=== PATIENT | male | born 1980 | race Hispanic/Latino ===

== ENCOUNTER 2020-12-09 02:52 | Inpatient (IN) | payer SELFPAY ==
[~2020-12-09] VITALS: Ht 152.4 cm; Wt 81.0 kg
--- NOTE | 2020-12-09 02:52 | NUR ---
PT TO ROOM 10 BY EMS FOR ABDOMINAL PAIN FOR 2 DAYS.
[2020-12-09 03:17] LABS: HEMATOCRIT 42.9 % (39.0-50.0); HEMOGLOBIN 14.9 g/dl (14.0-18.0); IMMATURE GRANULOCYTES 0.7 % (0.0-5.0); MEAN CELL VOLUME 84.1 fL CALC (80.0-100.0); MEAN CORPUSCULAR HGB 29.2 pG CALC (26.0-32.0); MEAN CORPUSCULAR HGB CONC 34.7 g/dL CAL (32.0-36.0); NEUT# 14.23 thou/uL (1.82-7.42); RED BLOOD COUNT 5.1 mill/uL (4.70-6.10); RED CELL DISTRI WIDTH 12.3 % (11.5-15.5)
[2020-12-09 03:33] LABS: ALBUMIN 4.3 g/dL (3.2-5.0); ALKALINE PHOSPHATASE 82 u/l (38-126); AMYLASE 188 u/l (30-110); ANION GAP 13 (6-22 (CALC)); BILIRUBIN, TOTAL 2.7 mg/dL (0.0-1.4); BUN 15 mg/dL (9-20); BUN/CREATININE RATIO 25 (12-20 (CALC)); CARBON DIOXIDE 28 mmol/l (22-30); CHLORIDE 95 mmol/l (95-108); CREATININE 0.6 mg/dL (0.7-1.3); ETHYL ALCOHOL 0 mg/dl (0-30); GFR > 60 ML/MIN (>=60 (CALC)); GFR FOR AFR.AMER. > 60 ML/MIN (>=60 (CALC)); LIPASE 1449 u/l (23-300); POTASSIUM 4.1 mmol/l (3.5-5.1); SGOT/AST 201 u/l (17-59); SODIUM 132 mmol/l (137-146)
--- NOTE | 2020-12-09 03:40 | NUR ---
AMYLASE AND LIPASE ELEVATED. DR MORA INFORMED.
--- NOTE | 2020-12-09 04:25 | NUR ---
PT TO HAVE CT WITH ORAL AND IV CONTRAST.
--- NOTE | 2020-12-09 04:45 | NUR ---
FIRST DOSE OF GASTROGRAFIN GIVEN AND PT IS TO HAVE TOTAL OF 3 DOSES 30 MINUTES APART.
--- NOTE | 2020-12-09 05:15 | NUR ---
PT STATES PAIN DOWN TO 3/10 AFTER MORPHINE. 2ND DOSE OF CONTRAST GIVEN.
--- NOTE | 2020-12-09 05:45 | NUR ---
3RD DOSE OF CONTRAST GIVEN.
--- NOTE | 2020-12-09 06:18 | NUR ---
PT TO CT VIA STRETCHER.
--- NOTE | 2020-12-09 06:55 | NUR ---
REPORT TO JOSAFAT SIMMS
--- NOTE | 2020-12-09 07:05 | NUR ---
SBAR PRINTED TO FLOOR
--- NOTE | 2020-12-09 08:05 | NUR ---
OBS ROOM RECEIVED. REPORT CALLED TO EDWARD
--- NOTE | 2020-12-09 08:10 | NUR ---
PT TRANSPORTED TO FLOOR ON STRETCHER IN STABLE CONDITION. BEDSIDE TRANSITION GIVEN.
[2020-12-09 08:23] VITALS: BP 142/90
--- NOTE | 2020-12-09 08:30 | NUR ---
PT ARRIVED VIA STREACHER. AXOX3, ABLE TO AMB TO THE BED FROM THE STREACHER. INTO BED WITH MIN ASST. ORIENTED TO THE ROOM THE BED THE TV AND THE CALL SYSTEM. INSTRUCTED THE PATIENT ON RIGHTS. NOTED B/P REPORTED TO THE PROVIDER. C/O PAIN MED PER ORDER. REPOSITIONED FOR COMFORT, SIDE RAILS UP CALL LIGHT IN REACH BED LOCKED IN LOW POSITION. TEDS PLACED ON PT. ALL SAFTY MEASUREWS IN PLACE. WILL CONTINUE TO MONIOTR THE PATIENT.
[2020-12-09 09:43] VITALS: BP 176/104
--- NOTE | 2020-12-09 09:45 | NUR ---
IV FLUID UP. NOTED B/P 176/104 REPORTED TO THE PROVIDER, ORDERS RECEIVED AND CARRIED OUT. WILL CONTINUE TO MONIOTR THE PATIENT.
--- NOTE | 2020-12-09 11:08 | NUR ---
0900 PT INDICATES THE PAIN IS NOT BAD.
--- NOTE | 2020-12-09 11:10 | NUR ---
PT RESTING COMFORTABLE NO DISTRESS NOTED AT THIS TIME.
[2020-12-09 13:07] LABS: HEMATOCRIT 43.8 % (39.0-50.0); HEMOGLOBIN 14.6 g/dl (14.0-18.0); MEAN CELL VOLUME 86.9 fL CALC (80.0-100.0); MEAN CORPUSCULAR HGB CONC 33.3 g/dL CAL (32.0-36.0); RED BLOOD COUNT 5.04 mill/uL (4.70-6.10); RED CELL DISTRI WIDTH 12.7 % (11.5-15.5)
[2020-12-09 13:28] LABS: ALBUMIN 3.7 g/dL (3.2-5.0); ALKALINE PHOSPHATASE 64 u/l (38-126); ANION GAP 12 (6-22 (CALC)); BILIRUBIN, TOTAL 2.1 mg/dL (0.0-1.4); BUN 12 mg/dL (9-20); BUN/CREATININE RATIO 19 (12-20 (CALC)); CARBON DIOXIDE 27 mmol/l (22-30); CHLORIDE 96 mmol/l (95-108); CREATININE 0.6 mg/dL (0.7-1.3); GFR > 60 ML/MIN (>=60 (CALC)); GFR FOR AFR.AMER. > 60 ML/MIN (>=60 (CALC)); POTASSIUM 4.3 mmol/l (3.5-5.1); SGOT/AST 112 u/l (17-59); SODIUM 131 mmol/l (137-146); TOTAL PROTEIN 7.1 g/dL (6.3-8.2)
--- NOTE | 2020-12-09 15:20 | NUR ---
REPORT RECEIVED FROM [place].
[2020-12-09 15:25] VITALS: BP 148/89
--- NOTE | 2020-12-09 15:46 | NUR ---
PATIENT HEART RATE IS 125. PATIENT STATED PAIN IN ABD 5/10. MEDICATED PATIENT WITH MORPHINE. HEART RATE READING 114-125. PATIENT DENIES ANY OTHER NEEDS AT THIS TIME. CALL LIGHT IN REACH. NOTIFIED [place] LAL ORDERS RECEIVED FOR A TELE.
[2020-12-09 18:55] LABS: URINE BILIRUBIN - DIPSTICK SMALL (NEGATIVE); URINE BLOOD DIPSTICK TRACE-LYSED (NEGATIVE); URINE COLOR AMBER; URINE GLUCOSE - DIPSTICK NEGATIVE (NEGATIVE); URINE KETONE 15 mg/dL (NEGATIVE); URINE LEUK ESTERASE NEGATIVE (NEGATIVE); URINE NITRITE - DIPSTICK POSITIVE (Negative); URINE PROTEIN - DIPSTICK 30 mg/dL (NEG-TRACE)
[2020-12-09 18:59] LABS: URINE RBC 0-2 RBC/hpf (0-5); URINE WBC 0-2 WBC/hpf (0-5)
[2020-12-09 19:45] VITALS: BP 140/95
--- NOTE | 2020-12-09 20:13 | NUR ---
PATIENT RESTING IN BED AT THIS TIME-AWAKE ALERT AND ORIENTEDX3. PATIENT C/O HEADACHE AND ABD PAIN-6/10 ON PAIN SCALE. MEDICATED WITH MORPHINE 4MG IVP ORDERED FOR PAIN. TELE MONITOR IN [id number] AT THIS TIME. IVF NS PATENT AND INFUSING VIA RAC SITE AT 125CC/HR. SITE IS H EALTHY WITH GOOD BLOOD RETURN. VOIDED 250CC OF AYESHA URINE IN URINAL. ABD IS SOFT WITH ACTIVE BS-LAST BM WAS YESTERDAY PER PATIENT. SAFETY PRECAUTIONS REINFORCED. CALL LIGHT IN REACH. WILL CONT TO MONITOR.
[2020-12-09 20:35] VITALS: BP 147/95
--- NOTE | 2020-12-09 21:02 | NUR ---
PATIENT RESTING IN BED-RECIEVED CALL FROM ER THAT PATIENT WAS ST-140"S. VS TAKEN AND RECORDED. BP-147/95, HR-134. EKG WAS DONE. CALL TO DR. DE WITH UPDATE AND NEW ORDERS RECEIVED. WILL MEDICATE SOON PROFILED ON EMAR.
--- NOTE | 2020-12-09 22:01 | NUR ---
PATIENT RESTING IN BED-STATES A LITTLE RELIEF FROM MORPHINE GIVEN EARLIER. LR BOLUS HUNG AND INFUSING VIA RAC IV SITE. ATIVAN 1MG IVP GIVEN FOR SLIGHT ANXIETY. PROVIDED PATIENT WITH GATORADE. CALL LIGHT IN REACH. WILL CONT TO MONITOR.
[2020-12-10] VITALS: BP 139/91
--- NOTE | 2020-12-10 00:41 | NUR ---
PATIENT MEDICATED FOR ABD PAIN WITH MORPHINE 2MG IVP ORDERED FOR PAIN. RESTING IN BED. IVF PATENT AND INFUSING VIA RAC AT 125CC/HR. TELE MONITOR IN PLACE. CONT TO BE ST-120'S. CALL LIGHT IN REACH. WILL CONT TO MONITOR.
--- NOTE | 2020-12-10 02:42 | NUR ---
PATIENT MEDICATED WITH ATIVAN 1MG IVP FOR ANXIETY. IVF PATENT AND INFUSING VIA RAC SITE. TELE MONITOR IN PLACE. NPO FOR U/S ABD IN AM. WILL CONT TO MONITOR.
[2020-12-10 04:00] VITALS: BP 137/65
[2020-12-10 04:45] LABS: HEMATOCRIT 40.6 % (39.0-50.0); HEMOGLOBIN 13.3 g/dl (14.0-18.0); IMMATURE GRANULOCYTES 0.9 % (0.0-5.0); MEAN CELL VOLUME 88.1 fL CALC (80.0-100.0); MEAN CORPUSCULAR HGB 28.9 pG CALC (26.0-32.0); MEAN CORPUSCULAR HGB CONC 32.8 g/dL CAL (32.0-36.0); NEUT# 11.28 thou/uL (1.82-7.42); RED BLOOD COUNT 4.61 mill/uL (4.70-6.10); RED CELL DISTRI WIDTH 12.8 % (11.5-15.5)
[2020-12-10 04:54] LABS: ALBUMIN 3.3 g/dL (3.2-5.0); ALKALINE PHOSPHATASE 51 u/l (38-126); AMYLASE 304 u/l (30-110); ANION GAP 10 (6-22 (CALC)); BILIRUBIN, TOTAL 2.3 mg/dL (0.0-1.4); BUN 8 mg/dL (9-20); BUN/CREATININE RATIO 14 (12-20 (CALC)); CARBON DIOXIDE 26 mmol/l (22-30); CHLORIDE 99 mmol/l (95-108); CREATININE 0.5 mg/dL (0.7-1.3); GFR > 60 ML/MIN (>=60 (CALC)); GFR FOR AFR.AMER. > 60 ML/MIN (>=60 (CALC)); POTASSIUM 4.1 mmol/l (3.5-5.1); SGOT/AST 64 u/l (17-59); SODIUM 131 mmol/l (137-146); TOTAL PROTEIN 6.6 g/dL (6.3-8.2)
[2020-12-10 05:06] LABS: LIPASE 2197 u/l (23-300)
--- NOTE | 2020-12-10 05:16 | NUR ---
PATIENT RESTING IN BED AT THIS TIME-MEDICATED FOR PAIN WITH MORPHINE 4MG IVP ORDERED FOR PAIN. TELE MONITOR IN PLACE-STILL ST-125. MEDICATED WITH NORVASC ORDERED DAILY. IVF NS PATENT AND INFUSING VIA RAC SITE AT 125CC/HR. SITE REMAINS HEALTHY. NPO FOR U/S ABD TODAY. CALL LIGHT IN REACH. WILL CONT TO MONITOR.
--- NOTE | 2020-12-10 06:06 | NUR ---
PATIENT HR CONT TO BE ST-1`40 AT THIS TIME PER ER MONITORING. ASYMPTOMATIC. CALL TO DR. DE AND NEW ORDER OBTAINED FOR METOPROLOL 5MG IVP NOW AND PRN. WILL MEDICATE SON PROFILED ON EMAR.
--- NOTE | 2020-12-10 06:22 | NUR ---
PATIENT RESTING IN BED AT THIS TIME-MEDICATED WITH LOPRESSOR 5MG IVP ORDERED FOR ST-TELE MONITOR REMAINS IN PLACE. IVF PATENT AND INFUSING VIA RAC SITE ORDERED. CALL LIGHT IN REACH. WILL CONT TO MONITOR,
[2020-12-10 07:35] VITALS: BP 148/89
--- NOTE | 2020-12-10 07:48 | NUR ---
SHIFT CHANGE REPORT, PT AWAKE ALERT AND ORIENTED SITTING UP IN BED, C/O ABD PAIN @ 10/25, STATES HE WANTS TO GO HOME, TELE MONITOR IN PLACE, CALL SOTO IN REACH, ADVISED MD WILL BE HERE LATER TO DISCUSS PLAN OF CARE, WILL CONTINUE TO MONITOR.
--- NOTE | 2020-12-10 09:19 | NUR ---
BEING TRANSPORTED OFF UNIT VIA W/C TO [facility].
--- NOTE | 2020-12-10 10:00 | NUR ---
ULTRA SOUND STAFF CALLED UNIT STATING PT SAID HE ATE BREAKFAST THIS AM AND EVEN DESCRIBED WHAT HE ATE, NURSE REASSURED STAFF HE WAS NOT SERVED A MEAL THIS AM AND ADVISED TO HAVE HOTEL SUPPLIES SALESPERSON QUESTION PT FOR ACCURATE INFO, PT IS ICELANDIC SPEAKING AND MAY UNDERSTAND AL LITTLE THAI BUT NOT SUFFICIENT TO BE RESPOND ACCURATELY IN THAI.
--- NOTE | 2020-12-10 10:05 | NUR ---
RETURNED TO UNIT AT THIS TIME AND TAKING SHOWER, WILL CONTINUE TO MONITOR.
[2020-12-10 10:52] VITALS: BP 135/85
--- NOTE | 2020-12-10 12:15 | NUR ---
PT FOUND SITTING BY WINDOW WITH IVF DISCONNECTED AND TELE MONITOR OFF, IVF RECONNECTED BY NURSE AND PT ADVISED NOT TO REMOVE EQUIPMENT FROM BODY ANYMORE, ENGRAVER RUBBER CONTACTED TO TRANSLATE (SHANNON FROM ICU), WILL CONTINUE TO MONITOR.
[2020-12-10 14:30] VITALS: BP 139/97
--- NOTE | 2020-12-10 14:50 | NUR ---
PT AMBULATED TO [facility] [place] [facility] STATING HE IS READY TO GO HOME, IV FLUID DISCONNECTED AND CATHETER REMOVED BY PT AND PLACED ON BEDSIDE TABLE. SHANNON FROM ICU CALLED TO TRANSLATE FOR PT, HE WAS GIVEN INFORMATION ON LEAVING AMA PROTOCOL, STATED HE UNDERSTANDS AND STILL WANTS TO GO HOME, FORM WAS SIGNED AND PT AMBULATED OFF UNIT. BUSINESS ENTERPRISE OFFICER (GITA) AND DR. DE NOTIFIED.
--- NOTE | 2020-12-10 14:52 | NUR ---
Patient deciding to leave AMA. Multiple attempts made to ecourage patient to remain here for continued treatment. Explained to patient all risks of leaving against medical advice including .Pt verbalized understanding of all risks. Pt verablized the urge to leave due to an important "court hearing tomorrow in [place]". Pt also encouraged to return to [facility] at any time, especially if symptoms continue or become worse. Pt verbalized understanding. AMA form signed by patient, witness by this literary writer and Earle MAURICE. Pt requesting to wait outside and wait for his taxi, pt accompanied outside by this literary writer in stable condition.
--- NOTE | 2020-12-10 14:59 | NUR ---
Patient decides to leave AMA. Multiple attempts made to ecourage patient to remain here for continued treatment. Explained to patient all risks of leaving against medical advice including . Pt verbalized understanding of all risks. Pt also encouraged to return to [facility] at any time, especially if symptoms continue or become worse. Pt verbalized understanding.
== END 2020-12-10 14:56 | disposition left against medical advice (07) | DRG 440 ==
LOC: ED 02:52 → ED-I 06:53 → MS2 07:10 → ED 07:10 → MS2 11:04
PROVIDERS: Family Medicine; Nurse Practitioner Family; ADMIT Internal Medicine; ATTEND Internal Medicine
DX: K85.20 Alcohol induced acute pancreatitis without necrosis or infection (principal); K80.20 Calculus of gallbladder without cholecystitis without obstruction; K76.9 Liver disease, unspecified; I10 Essential (primary) hypertension; F10.10 Alcohol abuse, uncomplicated; R73.9 Hyperglycemia, unspecified; Z20.822 Contact with and (suspected) exposure to COVID-19; Z23 Encounter for immunization
CPT/HCPCS: J1650; J2060; Q9967

== ENCOUNTER 2021-03-09 07:12 | Emergency (ER) | payer SELFPAY ==
[~2021-03-09] VITALS: Ht 152.4 cm; Wt 82.6 kg
[2021-03-09 08:22] LABS: URINE BILIRUBIN - DIPSTICK NEGATIVE (NEGATIVE); URINE BLOOD DIPSTICK TRACE-INTACT (NEGATIVE); URINE GLUCOSE - DIPSTICK NEGATIVE (NEGATIVE); URINE KETONE 15 mg/dL (NEGATIVE); URINE LEUK ESTERASE NEGATIVE (NEGATIVE); URINE PROTEIN - DIPSTICK TRACE mg/dL (NEG-TRACE); URINE SPECIFIC GRAVITY 1.025; URINE UROBILINOGEN - DIPSTICK 0.2 E.U./dL (0.2)
[2021-03-09 08:24] LABS: HEMATOCRIT 42.3 % (39.0-50.0); HEMOGLOBIN 14.5 g/dl (14.0-18.0); IMMATURE GRANULOCYTES 0.3 % (0.0-5.0); MEAN CORPUSCULAR HGB 29.5 pG CALC (26.0-32.0); MEAN CORPUSCULAR HGB CONC 34.3 g/dL CAL (32.0-36.0); NEUT# 8.87 thou/uL (1.82-7.42); RED BLOOD COUNT 4.92 mill/uL (4.70-6.10); RED CELL DISTRI WIDTH 12.3 % (11.5-15.5); URINE NITRITE - DIPSTICK NEGATIVE (Negative)
[2021-03-09 08:25] LABS: URINE COLOR AMBER
[2021-03-09 08:50] LABS: ALKALINE PHOSPHATASE 61 u/l (38-126); AMYLASE 53 u/l (30-110); ANION GAP 14 (6-22 (CALC)); BUN 9 mg/dL (9-20); BUN/CREATININE RATIO 13 (12-20 (CALC)); CARBON DIOXIDE 26 mmol/l (22-30); CHLORIDE 100 mmol/l (95-108); CREATININE 0.7 mg/dL (0.7-1.3); GFR > 60 ML/MIN (>=60 (CALC)); GFR FOR AFR.AMER. > 60 ML/MIN (>=60 (CALC)); LIPASE 59 u/l (23-300); POTASSIUM 4.1 mmol/l (3.5-5.1); SGOT/AST 30 u/l (17-59); SODIUM 136 mmol/l (137-146)
[2021-03-09 08:56] LABS: ALBUMIN 4.2 g/dL (3.2-5.0); BILIRUBIN, TOTAL 0.7 mg/dL (0.0-1.4)
[2021-03-09] MEDS ORDERED: LOMOTIL2.5 MG PO (10:09)
[2021-03-09] MEDS ORDERED: METRONIDAZOL500 MG PO (10:09)
[2021-03-09] MEDS ORDERED: CIPROFLOXACN500 MG PO (10:09)
[2021-03-09 10:23] VITALS: BP 162/92
== END 2021-03-09 10:25 | disposition home or self-care (01) | DRG 392 ==
LOC: ED 07:12
PROVIDERS: Emergency Medicine
DX: K52.9 Noninfective gastroenteritis and colitis, unspecified (principal); I10 Essential (primary) hypertension; Z20.822 Contact with and (suspected) exposure to COVID-19
CPT/HCPCS: Q9967

== ENCOUNTER 2021-04-09 12:51 | Emergency (ER) | payer SELFPAY ==
[~2021-04-09] VITALS: Ht 167.6 cm; Wt 81.8 kg
[~2021-04-09 12:51] MED LIST: CIPROFLOXACN500 MG PO; LOMOTIL2.5 MG PO; METRONIDAZOL500 MG PO
[2021-04-09 13:25] LABS: HEMATOCRIT 36.4 % (39.0-50.0); IMMATURE GRANULOCYTES 0.8 % (0.0-5.0); MEAN CELL VOLUME 87.3 fL CALC (80.0-100.0); MEAN CORPUSCULAR HGB 29.3 pG CALC (26.0-32.0); MEAN CORPUSCULAR HGB CONC 33.5 g/dL CAL (32.0-36.0); NEUT# 4.57 thou/uL (1.82-7.42); RED BLOOD COUNT 4.17 mill/uL (4.70-6.10)
[2021-04-09 13:31] LABS: HEMOGLOBIN 12.2 g/dl (14.0-18.0)
[2021-04-09 13:38] LABS: ALBUMIN 3.9 g/dL (3.2-5.0); ALKALINE PHOSPHATASE 132 u/l (38-126); AMYLASE 75 u/l (30-110); ANION GAP 15 (6-22 (CALC)); BILIRUBIN, TOTAL 3.4 mg/dL (0.0-1.4); BUN 10 mg/dL (9-20); BUN/CREATININE RATIO 18 (12-20 (CALC)); CARBON DIOXIDE 29 mmol/l (22-30); CHLORIDE 90 mmol/l (95-108); CREATININE 0.6 mg/dL (0.7-1.3); GFR > 60 ML/MIN (>=60 (CALC)); GFR FOR AFR.AMER. > 60 ML/MIN (>=60 (CALC)); LIPASE 239 u/l (23-300); POTASSIUM 2.7 mmol/l (3.5-5.1); SGOT/AST 216 u/l (17-59); SODIUM 131 mmol/l (137-146); TOTAL PROTEIN 7.9 g/dL (6.3-8.2)
[2021-04-09 14:40] LABS: URINE BILIRUBIN - DIPSTICK NEGATIVE (NEGATIVE); URINE BLOOD DIPSTICK NEGATIVE (NEGATIVE); URINE COLOR YELLOW; URINE GLUCOSE - DIPSTICK NEGATIVE (NEGATIVE); URINE KETONE NEGATIVE (NEGATIVE); URINE LEUK ESTERASE NEGATIVE (NEGATIVE); URINE PH 7.5 (4.5-8.0); URINE PROTEIN - DIPSTICK NEGATIVE (NEG-TRACE); URINE UROBILINOGEN - DIPSTICK 0.2 E.U./dL (0.2)
[2021-04-09 14:43] LABS: URINE NITRITE - DIPSTICK NEGATIVE (Negative)
[2021-04-09 17:45] VITALS: BP 159/78
== END 2021-04-09 17:45 | disposition short-term general hospital (02) | DRG 446 ==
LOC: ED 12:51
DX: K80.00 Calculus of gallbladder with acute cholecystitis without obstruction (principal); J10.1 Influenza due to other identified influenza virus with other respiratory manifestations; E87.6 Hypokalemia; I10 Essential (primary) hypertension; Z20.822 Contact with and (suspected) exposure to COVID-19
CPT/HCPCS: J0131; Q9967

== ENCOUNTER 2021-12-21 07:35 | Emergency (ER) | payer SELFPAY ==
[~2021-12-21] VITALS: Ht 167.6 cm; Wt 83.8 kg
[2021-12-21] VITALS (17 sets, daily range): BP systolic 113–152; BP diastolic 83–102
[2021-12-21 08:23] LABS: HEMATOCRIT 38.3 % (39.0-50.0); IMMATURE GRANULOCYTES 0.3 % (0.0-5.0); MEAN CELL VOLUME 87.8 fL CALC (80.0-100.0); MEAN CORPUSCULAR HGB 29.8 pG CALC (26.0-32.0); MEAN CORPUSCULAR HGB CONC 33.9 g/dL CAL (32.0-36.0); NEUT# 5.31 thou/uL (1.82-7.42); RED BLOOD COUNT 4.36 mill/uL (4.70-6.10); RED CELL DISTRI WIDTH 12.7 % (11.5-15.5)
[2021-12-21 08:34] LABS: ALBUMIN 4.2 g/dL (3.2-5.0); ALKALINE PHOSPHATASE 69 u/l (38-126); BUN 10 mg/dL (9-20); BUN/CREATININE RATIO 18 (12-20 (CALC)); CREATININE 0.6 mg/dL (0.7-1.3); GFR > 60 ML/MIN (>=60 (CALC)); GFR FOR AFR.AMER. > 60 ML/MIN (>=60 (CALC)); SGOT/AST 144 u/l (17-59); TOTAL PROTEIN 8.4 g/dL (6.3-8.2)
[2021-12-21 08:35] LABS: ANION GAP 16 (6-22 (CALC)); BILIRUBIN, TOTAL 0.8 mg/dL (0.0-1.4); CARBON DIOXIDE 23 mmol/l (22-30); CHLORIDE 103 mmol/l (95-108); POTASSIUM 3.6 mmol/l (3.5-5.1); SODIUM 138 mmol/l (137-146)
== END 2021-12-21 11:05 | disposition left against medical advice (07) | DRG 313 ==
LOC: ED 07:35
PROVIDERS: Family Medicine
DX: R07.9 Chest pain, unspecified (principal); I10 Essential (primary) hypertension; Z91.19 Patient's noncompliance with other medical treatment and regimen